=== PATIENT | male | born 1935 | race Caucasian/White ===

== ENCOUNTER → 2023-12-05 08:36 | Outpatient (REF) | payer MEDICARE, OTHER, SELFPAY ==
[2023-12-05 13:57] LABS: Urine Albumin Negative (Neg - Trace); Urine Bilirubin Negative (Negative); Urine Character Clear (Clear); Urine Color Yellow; Urine Glucose Negative (Negative); Urine Ketone Negative (Negative); Urine Leukocyte Negative (Negative); Urine Nitrite Negative (Negative); Urine Occult Blood Negative (Negative); Urine Specific Gravity 1.015 (<1.030); Urine Urobilinogen Negative (Neg - 1+); Urine pH 6.5 (5.0-9.0)
== END ==
LOC: OLABN 08:36
PROVIDERS: ATTENDING PHYSICIAN Student in an Organized Health Care Education/Training Program
DX: R35.0 Frequency of micturition (principal)
CPT/HCPCS: 81003; 87086

== ENCOUNTER → 2023-12-12 08:18 | Outpatient (REF) | payer MEDICARE, OTHER, SELFPAY ==
[2023-12-12 11:05] LABS: ALT (SGPT) 22 U/L (0-50); AST (SGOT) 38 U/L (17-59); Albumin 2.9 g/dl (3.5-5.0); Alkaline Phosphatase 50 U/L (38-126); Blood Urea Nitrogen 27 mg/dl (9-20); Calcium 8.3 mg/dl (8.4-10.2); Carbon Dioxide 29 mmol/L (22-30); Chloride 100 mmol/L (98-107); Glucose 85 mg/dl (70-99); Hematocrit 39.5 % (39.0-52.0); Hemoglobin 13.4 g/dL (13.0-18.0); Mean Corp Hgb Conc. 33.9 g/dL (33.0-37.0); Mean Corpuscular Volume 85.5 fL (80.0-94.0); Mean Platelet Volume 10.1 fL (7.4-10.4); Platelet Count 123 10^3/uL (130-400); Potassium 4.2 mmol/L (3.5-5.1); Red Blood Cell Count 4.62 10^6/uL (4.70-6.10); Red Cell Dist. Width 13.9 % (11.5-14.5); Sodium 135 mmol/L (135-145); Total Bilirubin 0.7 mg/dl (0.2-1.3); Total Protein 5.4 g/dl (6.3-8.2); White Blood Cell Count 4.9 10^3/uL (4.8-10.8); eGFR > 60.00
== END ==
LOC: OLABN 08:18
PROVIDERS: ATTENDING PHYSICIAN Student in an Organized Health Care Education/Training Program
DX: M62.81 Muscle weakness (generalized) (principal)
CPT/HCPCS: 36415; 80053; 85027

== ENCOUNTER 2025-02-06 12:57 | Inpatient (IN) | payer MEDICARE, OTHER, SELFPAY ==
[2025-02-06] VITALS (10 sets, daily range): BP systolic 123–153; BP diastolic 63–95; BMI 27.0
--- NOTE | 2025-02-06 09:27 | ED.GENMED ---
History of Present Illness
General
Chief Complaint: Rectal Bleeding
Source: patient
Exam Limitations: none
Time Seen by Provider: 02/06/25 09:27
Nursing documentation reviewed up to this point in time: agreed with
History of Present Illness
History of Present Illness:
Patient is an 89-year-old male presents from the long term for evaluation of rectal bleeding and clots.
As per nurse at [facility], pt had a moderate amount of blood in pull up that was dark red wtih clots. PT does walk to the BR by himself. He is on ASA no other blood thinners.
As per pt had colon cancer over 10 yrs ago. He had chemotherapy . In addition he has hx of multiple myeloma.
is Soraya : [phone]
Patient does have a history of dementia he arrives awake alert pleasantly confused and not able to give history.
Review of Systems
Review of Systems
Allergies reviewed?: Yes
All Other Systems: ROS reviewed and negative except as documented in HPI and ROS
Constitutional: Reports no symptoms; Denies fever, fatigue or chills
Respiratory: Reports no symptoms
Cardiac: Reports no symptoms
ABD/GI: Reports other (rectal bleeding/clots as per AL staff )
Phy Exam
General Physical Exam
General Presentation: no apparent distress
General age: appears stated age
General Skin: warm and dry
General Habitus: elderly
General Mental: confused
Cardiovascular Exam
Cardiovascular Exam: regular rate/rhythm, no murmur and normal peripheral pulses
Pulmonary Exam
Pulmonary Exam: lungs clear and no respiratory distress
Gastrointestinal Exam
Gastrointestinal Exam: non tender, soft and other (+ blood maroon colored on rectal exam no active bleeding )
Neurological Exam
Neurological Exam: alert and oriented x3
Musculoskeletal Exam
Musculoskeletal Exam: full ROM
Skin Exam
Skin Exam: normal color and warm/dry
Psychiatric Exam
Psychiatric Exam: normal mood/affect
Course
Orders/Labs/Results
Orders:
Orders
02/06/25 Breakfast
NPO
Allow oral meds: Yes
Allow clear liquids: Sips of Clears
NPO with Ice Chips: Yes
02/06/25 09:28
Electrocardiogram (*1) Urgent
Reason for Study: Other
Other Reason for Exam: admisison
Cardiac Monitoring- Treatment ONCE
EKG- Treatment ONCE
IV Insert/Care/Rem.- Treatment PRN
02/06/25 09:30
Basic Metabolic Panel Urgent
02/06/25 09:31
Type+Screen Urgent
Complete Blood Count/With Diff Urgent
02/06/25 11:33
Ondansetron Injectable [Zofran] 4 mg .ROUTE .STK-MED ONE
Ondansetron Orally Disint [Zofran Odt (Orally Disintegrating)] 4 mg .ROUTE .STK-MED ONE
02/06/25 11:54
Tranexamic Acid 1000 mg/100 ml [Tranexamic Acid] 1,000 mg in 100 ml IV ONCE
02/06/25 12:36
Admit/Transfer Patient As Directed
Co-Sign Provider:
Level of Care: Inpatient admission
Assign to:: IMU- Intermediate Care
Physician / Group: Htay
Diagnosis: GI Bleed
Reason for Hospitalization: IVFs, GI Bleed
Expected length of stay greater than two midnights?: Yes
ELOS- Estimated Length of Stay in days: 3
I certify the patient meets the requirements for IP care: Yes
02/06/25 12:37
PRN Pain Medication Management As Directed
May give lesser potent ordered pain med per pt: Yes
preference::
Protocol:: Medication orders for pain may be administered in a
manner that supports deferring to patient preference
when the pt is:
- Requesting an ordered lesser potent pain medication.
Least to most potent pain medications are defined
as: acetaminophen < NSAID < tramadol < opioids
(morphine, oxycodone, hydromorphone).
- Requesting a lesser dose of the same medication IF
ORDERED.
- Requesting a less intrusive route of administration
if both routes are prescribed by the provider (PO <
IV).
02/06/25 12:38
Code Status As Directed
Resuscitation Status: Do not resuscitate
Reached after discussion with pt or family/Healthcare POA: Yes
DNR Bracelet Application ONCE
02/06/25 12:46
PRN Pain Medication Management As Directed
May give lesser potent ordered pain med per pt: Yes
preference::
Protocol:: Medication orders for pain may be administered in a
manner that supports deferring to patient preference
when the pt is:
- Requesting an ordered lesser potent pain medication.
Least to most potent pain medications are defined
as: acetaminophen < NSAID < tramadol < opioids
(morphine, oxycodone, hydromorphone).
- Requesting a lesser dose of the same medication IF
ORDERED.
- Requesting a less intrusive route of administration
if both routes are prescribed by the provider (PO <
IV).
02/06/25 12:51
CT Angio Abd/Pelvis w/wo IV [CT Abd/pelvis Angio W/wo Iv] Stat
Comment:
Reason For Exam: GI bleed
02/06/25 12:58
H&H Q6H
02/06/25 14:12
0.9% Sodium Chloride 1000 ml [Nss] 1,000 ml IV 80 mls/hr
Acetaminophen [Tylenol] 650 mg PO Q4HPRN PRN
02/06/25 14:12
GASTROINTESTINAL CONSULT Routine
Consulting Provider: Roya Waterman
Was physician already notified: Yes
Activity As Directed
Activity Level: Out of Bed- Chair
Pneumatic Compression Sleeves As Directed
Type: Knee high
Vital Signs As Directed
Frequency: Per unit guidelines
DX Deep Vein Thrombosis Video Routine
02/06/25 18:00
Tamsulosin [Flomax] 0.4 mg PO QPM
02/06/25 20:01
H&H Q6H
02/07/25 03:40
Basic Metabolic Panel IN AM
Complete Blood Count/No Diff IN AM
Abnormal Lab Results
02/06/25 02/06/25
09:30 09:31
Abs Immat Gran (auto) 0.1 H 10^3/uL
(0-0.05)
Absolute Monos (auto) 0.9 H 10^3/uL
(0.1-0.6)
Immature Gran % 0.8 H %
(0-0.5)
Monocytes % 14.3 H %
(1.7-9.3)
BUN 26 H mg/dl
(9-20)
02/06/25 09:31
02/06/25 09:30
Vital Signs
Initial and Last Documented VS:
Initial Vital Signs
Temp Pulse Resp BP Pulse Ox
97.8 F 65 18 151/70 96
02/06/25 09:27 02/06/25 09:27 02/06/25 09:27 02/06/25 09:27 02/06/25 09:27
Last Documented Vital Signs
Temp Pulse Resp BP Pulse Ox
98.1 F 97 24 136/96 99
02/07/25 20:13 02/07/25 19:06 02/07/25 19:06 02/07/25 19:06 02/07/25 20:12
MDM/Problems Addressed
Differential Diagnosis Includes:
not limited to: GI bleed anemia
MDM/Problems Addressed:
Patient is an 89-year-old male sent for rectal bleeding from the long term. He has a history dementia and is unable to give history. He has a history of colon cancer greater than 10 years ago. Abdomen soft and nontender patient does not seem
to be in any pain or distress. Unable to get clear history from patient himself because of dementia. Family at bedside.
Stable HGB of 14.2 here however + did have large maroon blood w/ clots per rectum here in the ED. will admit
Chronic conditions affecting care:
Dementia, history of colon cancer years ago
*Critical Care Note
Total Time (30-74mins, 75-104mins- exclusive of procedures): Not Applicable
ED Attending Note
-
Portions of this chart may have been created with voice recognition software.� Occasional wrong word or��sound alike� substitutions may have occurred due to the inherent limitations of voice recognition software.
Discharge Plan
Departure
Patient Disposition: Admit
Date of Disposition: 02/06/25
Time of Disposition: 11:59
Admit to: Telemetry
Admit to doctor: hospitalist
Presentation/result/management discussed w/ accepting MD/DO: Hospitalist
Patient with high blood pressure during this ER visit?: Yes
Condition: Fair
Covid-19: Not Applicable
Discharge Problem:
Acute GI bleeding
Interventions
Interventions:
*Risk Screen - Suicide Last Done: 02/06/25 09:21
*General Assessment Last Done: 02/06/25 09:21
*Neglect/Abuse Screening Last Done: 02/06/25 09:21
*ED- Fall Risk Assessment Last Done: 02/06/25 11:50
*ED COVID-19 Vaccine History Last Done: 02/06/25 11:50
*Nursing Disposition Last Done: 02/06/25 14:15
JQ-Hzzwdz-Psxnpkhjwh Assessment Last Done: 02/06/25 11:50
ED- Cardiac Assessment Last Done: 02/06/25 11:50
ED- Pulmonary Assessment Last Done: 02/06/25 11:50
Discharge Date and Time
Discharge Date/Time: 02/06/25 14:15
[2025-02-06 09:39] LABS: % Basophils 0.6 % (0-2); % Eosinophils 2.2 % (0-6); % Immature Granulocytes 0.8 % (0-0.5); % Lymphocytes 24.8 % (20.5-51.1); % Monocytes 14.3 % (1.7-9.3); % Neutrophils 57.3 % (42.2-75.2); Absolute Eosinophils 0.1 10^3/uL (0-0.7); Absolute Immature Granulocytes 0.1 10^3/uL (0-0.05); Absolute Lymphocytes 1.6 10^3/uL (1.2-3.4); Absolute Monocytes 0.9 10^3/uL (0.1-0.6); Absolute Neutrophils 3.6 10^3/uL (1.4-6.5); Hematocrit 48.1 % (39.0-52.0); Hemoglobin 16.1 g/dL (13.0-18.0); Mean Corp Hgb Conc. 33.5 g/dL (33.0-37.0); Mean Corpuscular Hgb 29.9 pg (27.0-31.0); Mean Corpuscular Volume 89.4 fL (80.0-94.0); Mean Platelet Volume 10.3 fL (7.4-10.4); Nucleated Red Blood Cells % 0 % (-); Platelet Count 150 10^3/uL (130-400); Red Blood Cell Count 5.38 10^6/uL (4.70-6.10); Red Cell Dist. Width 13.7 % (11.5-14.5); White Blood Cell Count 6.3 10^3/uL (4.8-10.8)
[2025-02-06 10:04] LABS: Blood Urea Nitrogen 26 mg/dl (9-20); Calcium 9.1 mg/dl (8.4-10.2); Carbon Dioxide 24 mmol/L (22-30); Chloride 107 mmol/L (98-107); Glucose 99 mg/dl (70-99); Sodium 140 mmol/L (135-145); eGFR > 60.00
--- NOTE | 2025-02-06 12:08 | HPS.HSE ---
Family Physician
-
Family Physician: Osmany Boyce,
Chief Complaint
-
Rectal Bleeding
History of Present Illness
Patient is an 89 y/o male past medical history of dementia, sick sinus syndrome s/p pacemaker and multiple myeloma in remission who presents with rectal bleeding. Additional history is obtained from patient's at the bedside. She notes patient
had a bowel movement yesterday that was slightly hard but noted to be brown in color, and she denies any straining during the bowel movement. Today she received a call from the skilled nursing where patient is a long term acute care registered nurse resident that patient had a
bowel movement described as blood with clots. Patient was brought to the emergency department where he had another episode of blood and clots. reports known diverticulosis and prior cancerous colon polyps removed but no history of colon
cancer.
Medical History
Past Medical History
Past Medical History: Reports Other
Additional Past Medical History:
Sick Sinus Syndrome s/p Pacemaker
Dementia
Multiple Myeloma, in remisison
Past Surgical History: Reports None
Additional Past Surgical History:
Hernia Repair
Permanent Pacemaker
Social History
Tobacco: Non-smoker
Living: [facility]
Family History
Family History: Not pertinent
Allergies / Home Medications
Allergies reflects when Allergies were last updated in [facility].
Home Medications with original date entered in [facility]
Allergy/Medication List:
Allergies
Allergy/AdvReac Type Severity Reaction Status Date / Time
No Known Allergies Allergy Verified 12/09/22 12:00
Home Medications
acetaminophen 325 mg tablet (Tylenol) 650 mg PO Q4HPRN PRN MILD PAIN 02/06/25
aspirin 81 mg tablet,delayed release 81 mg PO DAILY 02/06/25
bisacodyl 10 mg rectal suppository (Dulcolax (bisacodyl)) 10 mg [place] [id number] PRN IF NO BM AFTR MOM 02/06/25
cholecalciferol (vitamin D3) 25 mcg (1,000 unit) tablet (Vitamin D3) 25 mcg PO DAILY 02/06/25
magnesium hydroxide 400 mg/5 mL oral suspension (Milk of Magnesia) 2,400 mg PO HSPRN PRN CONSTIPATION 02/06/25
tamsulosin 0.4 mg capsule (Flomax) 0.4 mg PO QPM 02/06/25
therapeutic multivitamin 1 tab PO DAILY 02/06/25
Review of Systems
-
Unable to obtain full review of systems at this time due to: Dementia
Respiratory: Denies Trouble Breathing
Cardiac: Denies Chest Pain
Abdomen/GI: Reports See HPI
Neurological: Denies Dizzy
Physical Exam
Vital Signs
Vital Signs
Temp Pulse Resp BP Pulse Ox
97.8 F 62 16 136/68 98
02/06/25 09:27 02/06/25 10:00 02/06/25 11:52 02/06/25 10:00 02/06/25 11:50
Physical Exam
General: Comfortable and Conversant
HEENT: Anicteric and Moist mucous membranes
Respiratory: Clear and Non Labored Respirations
Cardiac: S1/S2 and Regular Rhythm
GI: Soft and Non Tender
Rectal: Other (Bright Red Blood in diaper)
Musculoskeletal: No Clubbing, No Cyanosis and No Edema
Skin: Warm and Dry
Neuro: Awake, Alert and Nonfocal/grossly intact
Psych: Calm
Laboratory Results
-
02/06/25 09:31
02/06/25 09:30
Laboratory Results
Total Bilirubin Cancelled 02/06/25 09:30
AST Cancelled 02/06/25 09:30
ALT Cancelled 02/06/25 09:30
Alkaline Phosphatase Cancelled 02/06/25 09:30
Data Reviewed
-
Lab Data: Labs Reviewed by me
Old Records: Reviewed
Impression/Plan
-
GI Bleed, likely lower in nature possibly diverticular
-Consult GI
-Check CT Angio
-Continue NPO/IVFs
-Trend serial Hgb
-Blood consent obtained from at bedside and scanned into chart
Dementia
-Monitor for mood/behavior changes during hospitalization
BPH
-Continue Flomax
Hx Sick Sinus Syndrome s/p Permanent Pacemaker
Hx Multiple Myeloma s/p Chemotherapy - In Remission
DVT proph: SCDs
Code Status: DNR per POLST and confirmed with at bedside
[2025-02-06] MEDS: TRANEXAMIC ACID 100 IV (12:17)
--- NOTE | 2025-02-06 12:28 | CON.GI ---
Addendum entered and electronically signed by Roya Lopez Do, MD 02/06/25 16:16:
I saw and examined the patient.
The CREDIT REPRESENTATIVE's note was reviewed and I agree with the note.
Comment: Dakotah is an 89yo M with h/o dementia in SNF, pacer and multiple myeloma who presents with hematochezia after episode of constipation at SNF. Denies abd pain, nausea/vomiting or LH. Vitals HR is paced, BP 140/90s. NTTP, NABs. Labs
reviewed Hbg stable. CTA neg for extravasation, diverticulosis and suggestive of proctitis. mild prostate enlargement
Impression
- Hematochezia
Painless could be diverticular vs hemorrhoidal
- Dementia
- Pacer
- Multiple myeloma
- HTN
- SSS pacer
- BP
Recommendations
- Results of CTA d/w family and pt
- CLD now
- Monitor stool output
- Serial H/H
- C/w protonix daily basis
- If H/H stable consider bowel regimen and anusol supp empirically for hemorrhoids
- His last Cscope 2019 and family does not think he could tolerate prep again
Will follow with you. RN updated bedside.
Original Note:
Consultation
-
Date/Time Consultation Requested: 02/06/25 1215
Date/Time Consultation Performed: 02/06/25 1230
Requesting Provider: POPPY Vallejo
Performing Provider: POPPY Bell, Roya Waterman MD
Reason for Consultation: rectal bleeding
Medical History
Chief Complaint / HPI
History of Present Illness:
Pt is a 89yo presents with hx multiple myeloma in remission, pacer for SSS, dementia, HTN, hypothyroidism, prior rectal bleeding several years ago with colonoscopy 2019 with difficulty with diverticulosis, hemorrhoids, HP polyp, glandularity in
colon with neg bx. At that time blood with small volume with red blood on paper. Pt now presents with onset of large volume of red blood with dark clots. Pt on daily ASA no other NSAIDs. Pt unable to provide much history but able to
assist. He resides at [facility] but visits daily. She admit to daily stools some hard at time with chronic constipation. Had large harder stool yesterday after prunes. Bleeding then started around 9 am 02/06. Per family no chronic GI
issue with dysphagia, odynophagia, GERD, nausea, vomiting, abdominal pain, diarrhea, or black stools. No hx EGD in past. On admission hbg was 16.1 with BUN 26.
Past Medical History
Past Medical History: Arrhythmias (sss with pacer), HTN, Hypothyroidism, Psychiatric (dementia ) and Other (multiple myeloma, BPH )
Past Surgical History: Cardiac (pacer )
Social History
Tobacco: Former Smoker (years ago )
Alcohol: None
Drug: None
Personal:
Living: Assisted
Employment: Retired
Family History
Family History: Other (no family hx GI issues )
Allergies / Home Medications
Allergy/AdvReac Type Severity Reaction Status Date / Time
No Known Allergies Allergy Verified 12/09/22 12:00
�Medication �Instructions �Recorded
acetaminophen 325 mg tablet 650 mg PO Q4HPRN PRN MILD PAIN 02/06/25
(Tylenol)
aspirin 81 mg tablet,delayed 81 mg PO DAILY 02/06/25
release
bisacodyl 10 mg rectal suppository 10 mg [place] [id number] PRN IF NO BM AFTR 02/06/25
(Dulcolax (bisacodyl)) MOM
cholecalciferol (vitamin D3) 25 25 mcg PO DAILY 02/06/25
mcg (1,000 unit) tablet (Vitamin
D3)
magnesium hydroxide 400 mg/5 mL 2,400 mg PO HSPRN PRN CONSTIPATION 02/06/25
oral suspension (Milk of Magnesia)
tamsulosin 0.4 mg capsule (Flomax) 0.4 mg PO QPM 02/06/25
therapeutic multivitamin 1 tab PO DAILY 02/06/25
Review of Systems
-
Unable to obtain full review of systems at this time due to: Dementia
History Source: Patient and Family
Constitutional: Reports No Symptoms
EENT: Reports No Symptoms
Respiratory: Reports No Symptoms
Abdomen/GI: Reports Bloody Stools (red with dark clots )
: Reports No Symptoms
Musculoskeletal: Reports No Symptoms
Skin: Reports No Symptoms
Neurological: Reports Weakness
Endocrine: Reports No Symptoms
Hematologic/Lymphatic: Reports Bleeding
Vital Signs
Temp Pulse Resp BP Pulse Ox
97.8 F 58 14 153/84 98
02/06/25 09:27 02/06/25 12:15 02/06/25 12:15 02/06/25 12:00 02/06/25 11:50
Physical Exam
Exam
General: Well Developed, Well Nourished and No Apparent Distress
HEENT: Normocephalic and Anicteric
Respiratory: Clear
Cardiac: Regular Rhythm
GI: Soft, Non Tender and Non Distended
Rectal: Other (large volume of red blood with dark clots in diaper )
Musculoskeletal: No Clubbing and No Cyanosis
Skin: Warm and Dry
Neuro: Awake, Alert and Other (minimal verbal - family provides most history )
Psych: Calm
Results
WBC 6.3 10^3/uL (4.8-10.8) 02/06/25 09:31
Hgb 16.1 g/dL (13.0-18.0) 02/06/25 09:31
Hct 48.1 % (39.0-52.0) 02/06/25 09:31
MCV 89.4 fL (80.0-94.0) 02/06/25 09:31
Plt Count 150 10^3/uL (130-400) 02/06/25 09:31
Absolute Neuts (auto) 3.6 10^3/uL (1.4-6.5) 02/06/25 09:31
Sodium 140 mmol/L (135-145) 02/06/25 09:30
Potassium mmol/L (3.5-5.1) 02/06/25 09:30
Chloride 107 mmol/L (98-107) 02/06/25 09:30
Carbon Dioxide 24 mmol/L (22-30) 02/06/25 09:30
BUN 26 mg/dl (9-20) H 02/06/25 09:30
Creatinine 0.9 mg/dL (0.7-1.3) 02/06/25 09:30
Calcium 9.1 mg/dl (8.4-10.2) 02/06/25 09:30
Total Bilirubin Cancelled 02/06/25 09:30
AST Cancelled 02/06/25 09:30
ALT Cancelled 02/06/25 09:30
Alkaline Phosphatase Cancelled 02/06/25 09:30
Diagnostic Image Results:
02/06/25 CTA pending
Prior GI Procedures:
EGD: none
03/2019 colonoscopy [facility] - difficulty with diverticulosis, to TI adequate prep - Hemorrhoids found on perianal exam.
- Non-bleeding external and internal hemorrhoids and
likely the cause of the bleeding.
- One 4 mm polyp in the sigmoid colon, removed with a
jumbo cold forceps. Resected and retrieved.
- Diverticulosis in the entire examined colon.
- Granularity in the sigmoid colon, in the ascending
colon and in the cecum. Biopsied.
- The examined portion of the ileum was normal.
bx HP polyp, neg colitis
Assessment / Plan
-
Pt is a 89yo presents with hx multiple myeloma in remission, pacer for SSS, dementia, HTN, hypothyroidism, prior rectal bleeding several years ago with colonoscopy 2019 with difficulty with diverticulosis, hemorrhoids, HP polyp, glandularity in
colon with neg bx. At that time blood with small volume with red blood on paper. Pt now presents with onset of large volume of red blood with dark clots. Pt on daily ASA no other NSAIDs. Pt unable to provide much history but able to
assist. He resides at [facility] but visits daily. She admit to daily stools some hard at time with chronic constipation. Had large harder stool yesterday after prunes. Bleeding then started around 9 am 02/06. . No hx EGD in past. On
admission hbg was 16.1 with BUN 26.
-sudden onset of large volume rectal bleeding
-constipation
-hx HP polyps, hemorrhoids, diverticulosis per prior colonoscopy
other med problems:
-dementia
-hx multiple myeloma in remission
-pacer for SSS
-HTN
-hypothyroidism
-BPH
PLAN:
etioloyg of bleeding with large volume of painless bleeding related to diverticular bleed vs other
repeat rectal on exam with large volume red blood with dark clots in diaper -- now 3rd episode since 9 AM
plan for CTA now if + consider angio
hbg 16.1 on admission with drop to 14.7 after admission
NPO
trend stool record hbg transfuse as needed
reviewed with Leyla Cutler PA-C
updated family
-
-
Thank you for consultation and allowing me to participate in the patient's care. Please call the electronics engineer GI physician during the after hours with any questions or concerns.
--- NOTE | 2025-02-06 12:40 | W.PN.UPDATE ---
Addendum entered and electronically signed by Milad Guy MD 02/06/25 13:14:
CORRECTION:
89M NH Res, HX Dementia, on ASA, HX myeloma Remote <del>HX</del> <del>HX</del> <del>Colorectal</del> <del>CA</del>, HX colon polys removal
Addendum entered and electronically signed by Milad Guy MD 02/06/25 12:46:
Seen by GI CAN MARKER
Diaper is soaked with blood
HX constipation
- CTA in place of AXR
- Level of care to IMU
Original Note:
Update Note
Progress Note Update
I could not get any information from the patient has dementia:
Information gathered by chart review and speaking with the ER staff. and is Soraya : [phone]
This note serves as an addendum to the H&P by sole layer hand ZACH Ksenia SABAAUDIE
HPI
89M NH Res, HX Dementia, on ASA, HX myeloma Remote HX HX Colorectal CA treated with chemo seen at ER for for evaluation of rectal bleeding and clots.
- NH staff , passage of moderate amount of blood in pull up that was dark red wtih clots.
- currently on ASA
- he does walk to the BR by himself
At ER: he arrives awake alert pleasantly confused and not able to give history.
Reviewed VS:
VS
02/06/25
09:27 02/06/25
10:00
Temp 97.8 F
Pulse 65
Resp Rate 18
Blood pressure 151/70 136/68
SaO2 96
Oxygen Mode of Delivery Room air
PE
Gen: pleasantly confused
HEENT: no pallor
Neck: supple
Lungs: CTA
Cor: RRR S1 S2
Abdomen: soft and benign
MACHINE HEEL SPRAYER: alert , non focal exam
MS: no edema
Psych: interactive but limited exam due to dementia
Labs
02/06/25 02/06/25
09:30 09:31
Hgb 16.1
BUN 26 H
Creatinine 0.9
eGFR > 60.00
EKG
Atrial-paced rhythm with prolonged AV conduction
LEFT AXIS DEVIATION
MINIMAL VOLTAGE CRITERIA FOR LVH, MAY BE NORMAL VARIANT ( R in aVL )
ABNORMAL ECG
WHEN COMPARED WITH ECG OF 09-DEC-2022 12:09,
NO SIGNIFICANT CHANGE WAS FOUND
Confirmed by MD ANGEL, KRYSTA Nj ([id number]) on 02/06/2025 10:09:42 AM
05/28/23 TTE
Normal biventricular size and systolic function without regional wall motion abnormality.
Estimated LVEF 60-65%.
Aortic sclerosis without stenosis.
Mild aortic regurgitation.
Ectatic proximal ascending aorta: 3.8 cm.
NO PRIOR hospitalist admission:
03/31/19 Colonoscope
- Hemorrhoids found on perianal exam.
- Non-bleeding external and internal hemorrhoids and likely the cause of the bleeding.
- One 4 mm polyp in the sigmoid colon, removed with a jumbo cold forceps. Resected and retrieved.
- Diverticulosis in the entire examined colon.
- Granularity in the sigmoid colon, in the ascending colon and in the cecum. Biopsied.
- The examined portion of the ileum was normal.
ASSESSMENT & PLAN
Acute rectal bleed with 2 episodes of BRP and passage of clot : received IV tranexemic acid at ER
Hemodynamically stable
Hgb 16
Remote HX Colon polys by denied CA by family
DDX: Hemorrhoids, Diverticulosis, fecal impaction
- AXR to eval fro fecal burden
- Hold ASA for now
- NPO wit sips
- Gentle IVF
- Trend H & H
- Blood consented
- GI consulted
HX Multiple myeloma in remission
HX s/p chemo
BPH
- c/w Flomax
Dementia
Res of memory care unit at OR
Use walker
- supportive care
DVT Px: SCD
DNR per advanced directives confirmed by
IP TLM
[2025-02-06 13:18] LABS: Hematocrit 43.8 % (39.0-52.0); Hemoglobin 14.7 g/dL (13.0-18.0)
[2025-02-06] MEDS: NSS 1000 IV (14:33)
--- NOTE | 2025-02-06 15:52 | PTCARENOTE ---
Received patient on admission from ED via stretcher. Patient transferred to bed x3 assist and t/f sheet. Patient incontinent of small amount maroon liquid stool. Dr Waterman from GI on unit to see patient and made aware; increased diet to clear liquid.
--- NOTE | 2025-02-06 15:54 | PTCARENOTE ---
Received patient on admission from ED via stretcher. Patient transferred to bed x3 assist and t/f sheet. Patient incontinent of small amount maroon liquid stool. Dr Waterman from GI on unit to see patient and made aware; increased diet to clear liquid.
Ox1, pleasant and cooperative; a-paced on monitor. Denies abdominal pain/tenderness. See worklist for full assessment and vital signs.
--- NOTE | 2025-02-06 16:04 | PTCARENOTE ---
Received patient on admission from ED via stretcher. Patient transferred to bed x3 assist and t/f sheet. Patient incontinent of small amount maroon liquid stool. Dr Waterman from GI on unit to see patient and made aware; increased diet to clear liquid.
Ox1; pleasant and cooperative; a-paced on the monitor. and daughter at bedside. See worklist for full assessment and vital signs.
[2025-02-06] MEDS: FLOMAX 0.4 MG PO (18:00)
[2025-02-06 20:08] LABS: Hemoglobin 14.2 g/dL (13.0-18.0)
--- NOTE | 2025-02-06 22:41 | PTCARENOTE ---
Caring for pt overnight. Not oriented and unable to teach/reorient. NSR on monitor, occasional pacer spikes. VSS. Q2T. Bed alarm. NO bloody Bm's. H&H at 1930 14.2. NO other issues at this time. Will monitor
[2025-02-07] VITALS (12 sets, daily range): BP systolic 104–152; BP diastolic 41–96
[2025-02-07] MEDS: NSS 1000 IV ×2 (01:54→15:29)
[2025-02-07 03:50] LABS: Hematocrit 43.3 % (39.0-52.0); Hemoglobin 14.2 g/dL (13.0-18.0); Mean Corp Hgb Conc. 32.8 g/dL (33.0-37.0); Mean Corpuscular Hgb 28.9 pg (27.0-31.0); Mean Platelet Volume 10.1 fL (7.4-10.4); Platelet Count 151 10^3/uL (130-400); Red Blood Cell Count 4.92 10^6/uL (4.70-6.10); Red Cell Dist. Width 13.5 % (11.5-14.5); White Blood Cell Count 8.3 10^3/uL (4.8-10.8)
[2025-02-07 04:17] LABS: Blood Urea Nitrogen 23 mg/dl (9-20); Calcium 8.5 mg/dl (8.4-10.2); Carbon Dioxide 24 mmol/L (22-30); Chloride 106 mmol/L (98-107); Estimated Creatinine Clearance 61 ml/min; Glucose 103 mg/dl (70-99); Potassium 4.1 mmol/L (3.5-5.1); Sodium 139 mmol/L (135-145); eGFR > 60.00
--- NOTE | 2025-02-07 07:13 | W.PN.HOSP.TC ---
Addendum entered and electronically signed by Lee Granda MD 02/07/25 21:07:
Attending Addendum-
I saw and evaluated the patient. I reviewed the resident�s note and agree with findings and plan as documented in the resident�s note. Sub: Patient is a poor historian due to dementia but very pleasant. Seen with present. No further BRBPR.
Stools are burgundy. Patient with no complaints. Full 12 point ROS reviewed and negative except as documented Exam: Vitals reviewed in chart GEN-NAD heart RRR no M/R/G lungs clear abd soft NT ND pos BS LE no edema Neuro AAO x 1
Plan:
# Acute GI Bleed, likely lower
- diverticular vs hemorrhoids
- transfer to [facility] from IMU
- GI- no indication for invasive procedures due to age and acute bleeding has subsided
- CT Angio 02/06-
1. No extravasation of contrast into the bowel to suggest active bleeding at the time of imaging.
2. Hyper enhancement of the rectal mucosa on arterial phase images, suggestive of proctitis. No intraluminal contrast is seen on delayed phase images to suggest active rectal bleeding.
3. Moderate colonic diverticulosis without evidence of diverticulitis.
-advance diet
-Trend serial Hgb- stable
-Blood consent obtained from at bedside and scanned into chart
# Stage 1 b/l sacral and coccyx ulcer
- POA
- wound care
# Dementia
-Monitor for mood/behavior changes during hospitalization
# BPH
-Continue Flomax
#Hx Sick Sinus Syndrome s/p Permanent Pacemaker
#Hx Multiple Myeloma s/p Chemotherapy - In Remission
DVT proph: SCDs
Dispo DC back to [facility] in am
Code Status: DNR d/w with at bedside
ACP
Patient unable to consent to discuss, was with , time spent explanation of advance directives, changes in health status, patient�s health care wishes if the patient becomes unable to make health decisions, goals of care, code status, and
prognosis 'thats what his wishes would be'- 16 minutes
Time spent coordinating care, review of plan of care with resident, personally reviewed previous records in EMR, med rec, labs, radiology, d/w nursing, family total time documented is exclusive of any additional time listed that was spent in advance
care planning discussion -�52 minutes
Original Note:
Today's Communication/Plan
-
Patient remains hemodynamically stable
C/t hold aspirin
Will add daily stool softener regimen for constipation and Anusol for hemorrhoid
PT/OT eval
Likely D/c tomorrow
Assessment / Plan
Assessment / Plan
89 Year old male presenting with an episode of painless hematochezia after straining
Soraya : [phone]
ACUTE MANAGING
CT Abd/pelvis Angio W/wo Iv:
1. No extravasation of contrast into the bowel to suggest active bleeding at the time of imaging.
2. Hyper enhancement of the rectal mucosa on arterial phase images, suggestive of proctitis. No intraluminal contrast is seen on delayed phase images to suggest active rectal bleeding.
3. Moderate colonic diverticulosis without evidence of diverticulitis.
4. Mild prostatic enlargement.
#Painless Hematochezia, secondary to diverticular bleed vs. hemorrhoidal bleed
- previous colonoscopy 2019, polyp removal, no h/o colon cancer
- h/o diverticulosis w/ CT confirmation -- no evidence for diverticulitis
- CTA shows no signs of active bleed. There is radiographic evidence of proctitis
- hgb on admission 14.2, patient hemodynamically stable
- CLD, will advance to regular
- holding aspirin
#Acute BL Conjunctivitis, likely Bacterial
- new on admission, given patient's dementia and recent loose bowel movements, most likely bacterial in nature
- Started Polymyxin B- Trimethoprim eye drops qid x7d
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
CHRONIC STABLE
#Chronic Constipation - c/w Dulcolax, MoM prn
#H/o Multiple Myeloma, in remission
#Dementia - holding Theragen
# Sick Sinus Syndrome, s/p pacemaker -
#BPH - c/w flomax
Diet: regular
DVT PPx: None
Code Status: Full Code
Anticipated Discharge: Within 24 hours
Subjective/Interval History
-
Date of Service: February 07, 2025
Interview somewhat limited due to dementia, however patient does not endorse any pain, bleeding, n/v/d or abd pain. He had burgundy colored stool overnight.
Objective Data
-
Labs:
Laboratory Results
02/06/25 02/07/25 02/07/25
20:01 01:30 03:40
WBC 8.3
Hgb 14.2 Cancelled 14.2
Hct 42.0 Cancelled 43.3
Plt Count 151
Sodium 139
Potassium 4.1
Chloride 106
Carbon Dioxide 24
BUN 23 H
Creatinine 0.8
Glucose 103 H
Calcium 8.5
02/07/25
07:30
WBC
Hgb Pending
Hct Pending
Plt Count
Sodium
Potassium
Chloride
Carbon Dioxide
BUN
Creatinine
Glucose
Calcium
Vital Signs:
Vital Signs
Temp Pulse Resp BP Pulse Ox
98.2 F 65 22 128/72 95
02/07/25 07:13 02/07/25 06:00 02/07/25 06:00 02/07/25 06:00 02/06/25 20:58
I&O
02/06/25 02/07/25 02/08/25
06:59 06:59 06:59
Intake Total 600 / 600
Output Total 925 / 925
Balance -325 / -325
Review of Systems
-
Unable to obtain full review of systems at this time due to: Dementia
History Source: Patient
Constitutional: Reports No Symptoms
Respiratory: Reports No Symptoms
Cardiac: Reports No Symptoms
Abdomen/GI: Reports No Symptoms
Musculoskeletal: Reports No Symptoms
Hematologic / Lymphatic: Denies Bleeding or Bruising
Physical Exam
-
General: Well Developed, Well Nourished, No Apparent Distress and Comfortable
HEENT: Normocephalic, Atraumatic, Moist Mucous Membranes, Anicteric, [place] Conjunctivae, Nose Appears Normal and Ears Appear Normal
Respiratory: Clear to Auscultation; Negative Wheezes, Rales or Rhonchi
Cardiac: Regular Rhythm and S1/S2; Negative Murmur or Rub
GI: Soft, Nontender, Nondistended and Normal Bowel Sounds
Musculoskeletal: No Clubbing, No Cyanosis and No Edema
Skin: Warm, Dry and IV Access / Catheter Site
Neuro: Awake and Alert; Negative Oriented
[2025-02-07] MEDS: PROTONIX 40 MG PO (09:26)
--- NOTE | 2025-02-07 11:43 | PTCARENOTE ---
Assumed care of patient at beginning of this shift. Patient scheduled for H&H at 07:30 but had one drawn at 03:40 with results 14.2/43.3; Dr Granda and Dr Hernandez made aware via TT, H&H cancelled. Patient incontinent of small brown/maroon liquid
bm; Dr Hernandez made aware when on unit to see patient. See worklist for full assessment and vital signs.
[2025-02-07] MEDS: POLYTRIM OPHTHALMIC SOLUTION 1 DROP OPHTH ×3 (11:54→19:40)
--- NOTE | 2025-02-07 14:48 | PN.CDI ---
CDI
- -
CDI:
Physician Documentation Request
Admit Date: 02/06/25 12:57
Dear Doctor David,
Please review the following and provide your response in the progress notes.
Clinical Indicators:
Nurses' Assessment, 02/06
Selected Entries
02/06/25
16:19
Pressure injury stage [Present on admission Bilateral Buttock] Stage 1
Selected Entries
02/06/25
16:19
Pressure injury stage [Present on admission Coccyx] Stage 1
Physician documentation of the type and location of wounds is required for compliant documentation. Based on the above clinical findings and your assessment, please provide the following in your progress note:
Yes, Stage 1 pressure injury bilateral buttocks and coccyx, POA
No, Stage 1 pressure injury bilateral buttocks and coccyx
Other (please specify)
Location of the ulcer/wound, including laterality.
Type (etiology) of ulcer/wound:
- Pressure (decubitus) ulcer
- Other
- Unable to determine
For a pressure ulcer, please also include the stage* of the ulcer:
- Stage 1 - Skin intact, non-blanchable redness
- Stage 2 - Partial thickness loss of dermis, includes intact or open blister
- Stage 3 - Full thickness tissue not including bone, tendon or muscle
- Stage 4 - Full thickness tissue loss, including exposed bone, tendon or muscle
- Unstageable - Full thickness loss in which the base of the ulcer is covered by slough (yellow, khalil, landa, green or brown) and/or eschar (khalil, brown or black) in the wound bed.
Use of terms such as suspected, likely, concern for, or probable (associated with a specific diagnosis that is being evaluated, monitored, or treated as if it exists) are acceptable and can be coded in the inpatient setting, when documented at the
time of discharge.
Thank you,
Julia Martini RN BSN CCDS
CDI Specialist
please contact via tiger text
Please use your independent medical judgment in providing your response.
*Source: National Pressure Ulcer Advisory Panel (NPUAP)
--- NOTE | 2025-02-07 14:53 | PN.CDI ---
CDI
- -
CDI:
Physician Documentation Request
Admit Date: 02/06/25 12:57
Dear Doctor David,
Please review the following and provide your response in the progress notes.
Clinical Indicators:
PN, 02/07
#BL Conjunctivitis, likely Bacterial
#...- new on admission, given patient's dementia and recent loose bowel movements,
#...most likely bacterial in nature
#- Started Polymyxin B- Trimethoprim eye drops qid x7d
Please clarify the acuity of the Bilateral Bacterial Conjunctivitis:
Acute
Acute on Chronic
Other (please specify)
Use of terms such as suspected, likely, concern for, or probable (associated with a specific diagnosis that is being evaluated, monitored, or treated as if it exists) are acceptable and can be coded in the inpatient setting, when documented at the
time of discharge.
Thank you,
Julia Martini RN BSN CCDS
CDI Specialist
Please contact via tiger text
Please use your independent medical judgment in providing your response.
--- NOTE | 2025-02-07 15:10 | W.PN.GI.CBS2 ---
Today's Communication / Plan
-
Daily bowel regimen
Anusol suppository as needed
Assessment / Plan
-
Dakotah is an 89yo M with h/o dementia in SNF, pacer and multiple myeloma who presents with hematochezia after episode of constipation at SNF. Denies abd pain, nausea/vomiting or LH. Vitals HR is paced, BP 140/90s. NTTP, NABs. Labs reviewed Hbg
stable. CTA neg for extravasation, diverticulosis and suggestive of proctitis. mild prostate enlargement
Impression
- Hematochezia
Painless could be diverticular vs hemorrhoidal
- Dementia
- Pacer
- Multiple myeloma
- HTN
- SSS pacer
- BP
Recommendations
- Hb stable. Proud burgundy stools possible residual . tolerating diet
- consider daily bowel regimen (Metamucil/MiraLAX/Colace ) and anusol supp empirically for hemorrhoids
- His last Cscope 2018 and family would like to hold off on future colonoscopy
- Will sign off. Please call us back if any questions
Total Time Spent with Patient (in minutes): 35
Subjective
Subjective
Date of Service: February 07, 2025
No right red blood per rectum.
Objective
Data Reviewed
Laboratory Data:
Laboratory Results
02/07/25 07:30
02/07/25 03:40
Laboratory Results
Total Bilirubin Cancelled 02/06/25 09:30
AST Cancelled 02/06/25 09:30
ALT Cancelled 02/06/25 09:30
Alkaline Phosphatase Cancelled 02/06/25 09:30
Vital Signs and I&O:
Vital Signs
Temp Pulse Resp BP Pulse Ox
97.7 F 65 21 119/61 97
02/07/25 11:30 02/07/25 12:00 02/07/25 12:00 02/07/25 12:00 02/07/25 12:33
I&O
02/06/25 02/07/25 02/08/25
06:59 06:59 06:59
Intake Total 600 / 600
Output Total 925 / 925 300 / 300
Balance -325 / -325 -300 / -300
Physical Exam
Physical Exam
GI: Soft, Non Distended and Non Tender
--- NOTE | 2025-02-07 16:31 | CM ---
Patient from [facility] with Hx dementia with Dx GI bleed. Room air. Diet advanced today to regular. Per nurse; confused.
Spoke with Carmella Arzate [facility];
the patient resides there in their memory unit D1, in LTC on an MA bed hold.
He was alert but pleasantly confused.
The patient rquires mod-max assist of 1 for ADLs.
He ambulated with RW with supervision.
He was not receiving PT/OT at [facility].
The for report [phone], fax [phone].
Message from Resident David; patient is ready for d/c today.
Spoke with Deborah Arzate: they cannot accept the patient back today as they already have several other admissions, however can take him tomorrow.
Spoke with patient's Soraya; she feels that the patient is not ready for d/c today, however she agrees with him returning to SNF tomorrow.
Plan return to [facility] tomorrow by ambulance.
[2025-02-07] MEDS: FLOMAX 0.4 MG PO (17:24)
[2025-02-07] MEDS: SENOKOT-S 1 TABLET PO (19:40)
[2025-02-08 04:38] LABS: ALT (SGPT) 28 U/L (0-50); AST (SGOT) 36 U/L (17-59); Albumin 3.5 g/dl (3.5-5.0); Alkaline Phosphatase 72 U/L (38-126); Blood Urea Nitrogen 19 mg/dl (9-20); Calcium 8.3 mg/dl (8.4-10.2); Carbon Dioxide 23 mmol/L (22-30); Chloride 110 mmol/L (98-107); Estimated Creatinine Clearance 61 ml/min; Glucose 95 mg/dl (70-99); Potassium 3.9 mmol/L (3.5-5.1); Sodium 140 mmol/L (135-145); Total Bilirubin 0.7 mg/dl (0.2-1.3); Total Protein 5.9 g/dl (6.3-8.2); eGFR > 60.00
[2025-02-08 04:50] LABS: % Basophils 0.5 % (0-2); % Eosinophils 2.3 % (0-6); % Immature Granulocytes 0.9 % (0-0.5); % Lymphocytes 15.9 % (20.5-51.1); % Monocytes 15.6 % (1.7-9.3); % Neutrophils 64.8 % (42.2-75.2); Absolute Eosinophils 0.2 10^3/uL (0-0.7); Absolute Immature Granulocytes 0.1 10^3/uL (0-0.05); Absolute Neutrophils 4.2 10^3/uL (1.4-6.5); Hematocrit 40.7 % (39.0-52.0); Hemoglobin 13.9 g/dL (13.0-18.0); Mean Corp Hgb Conc. 34.2 g/dL (33.0-37.0); Mean Corpuscular Hgb 30.1 pg (27.0-31.0); Mean Corpuscular Volume 88.1 fL (80.0-94.0); Mean Platelet Volume 10.2 fL (7.4-10.4); Nucleated Red Blood Cells % 0 % (-); Platelet Count 138 10^3/uL (130-400); Red Blood Cell Count 4.62 10^6/uL (4.70-6.10); Red Cell Dist. Width 13.2 % (11.5-14.5); White Blood Cell Count 6.4 10^3/uL (4.8-10.8)
--- NOTE | 2025-02-08 04:56 | PTCARENOTE ---
Patient confused and restless overnight. Continuously attempting to get OOB. Bed alarm on. Continues with dark black stools.
--- NOTE | 2025-02-08 07:12 | W.PN.HOSP.TC ---
Addendum entered and electronically signed by Lee Granda MD 02/08/25 21:20:
Attending Addendum-
I saw and evaluated the patient. I reviewed the resident�s note and agree with findings and plan as documented in the resident�s note. Sub: Patient is a poor historian due to dementia but very pleasant. Seen with present. Per nursing now dark
collored stool. No further BRBPR. Patient with no complaints. Full 12 point ROS reviewed and negative except as documented Exam: Vitals reviewed in chart GEN-NAD heart RRR no M/R/G lungs clear abd soft NT ND pos BS LE no edema Neuro AAO x 1
Plan:
# Acute GI Bleed, likely lower
- resolved
- diverticular vs hemorrhoids
- transfer to [facility] 02/07
- GI- no indication for invasive procedures due to age and acute bleeding has subsided
- CT Angio 02/06-
1. No extravasation of contrast into the bowel to suggest active bleeding at the time of imaging.
2. Hyper enhancement of the rectal mucosa on arterial phase images, suggestive of proctitis. No intraluminal contrast is seen on delayed phase images to suggest active rectal bleeding.
3. Moderate colonic diverticulosis without evidence of diverticulitis.
-advance diet
-Trend serial Hgb- stable
# Stage 1 b/l sacral and coccyx ulcer
- POA
- wound care
# Dementia
-Monitor for mood/behavior changes during hospitalization
# BPH
-Continue Flomax
#Hx Sick Sinus Syndrome s/p Permanent Pacemaker
#Hx Multiple Myeloma s/p Chemotherapy - In Remission
DVT proph: SCDs
Dispo DC back to [facility] for today but delayed due to PT eval, DC to [facility] in am d/w CM
Code Status: DNR d/w with at bedside
Time spent coordinating care, review of plan of care with resident, personally reviewed records in EMR, med rec, consults, notes, labs, radiology, d/w nursing CM and POA � 51 mins
Original Note:
Today's Communication/Plan
-
PT consult
c/w abx eye drops
plan for d/c back to [facility]
Assessment / Plan
Assessment / Plan
89 Year old male presenting with an episode of painless hematochezia after straining
Soraya : [phone]
ACUTE MANAGING
CT Abd/pelvis Angio W/wo Iv:
1. No extravasation of contrast into the bowel to suggest active bleeding at the time of imaging.
2. Hyper enhancement of the rectal mucosa on arterial phase images, suggestive of proctitis. No intraluminal contrast is seen on delayed phase images to suggest active rectal bleeding.
3. Moderate colonic diverticulosis without evidence of diverticulitis.
4. Mild prostatic enlargement.
#Painless Hematochezia, secondary to diverticular bleed vs. hemorrhoidal bleed
- previous colonoscopy 2019, polyp removal, no h/o colon cancer
- h/o diverticulosis w/ CT confirmation -- no evidence for diverticulitis
- CTA shows no signs of active bleed. There is radiographic evidence of proctitis
- hgb on admission 14.2, has not required transfusions, hgb today stable 13.9.
- patient hemodynamically stable
- tolerating Regular diet
- holding aspirin
#Acute BL Conjunctivitis, likely Bacterial
- new on admission, given patient's dementia and recent loose bowel movements, most likely bacterial in nature
- Started Polymyxin B- Trimethoprim eye drops qid x7d
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
Pending PT consult for return to [facility]
CHRONIC STABLE
#Chronic Constipation - c/w Dulcolax, MoM prn
#H/o Multiple Myeloma, in remission
#Dementia - holding Theragen
# Sick Sinus Syndrome, s/p pacemaker -
#BPH - c/w flomax
Diet: regular
DVT PPx: None
Code Status: Full Code
Anticipated Discharge: Within 24 hours
Subjective/Interval History
-
Date of Service: February 08, 2025
Feeling well this AM, no acute complaints. No overnight events. Stools have become black/brown, without [place] blood or clots.
Objective Data
-
Labs:
Laboratory Results
02/08/25
03:53
WBC 6.4
Hgb 13.9
Hct 40.7
Plt Count 138
Sodium 140
Potassium 3.9
Chloride 110 H
Carbon Dioxide 23
BUN 19
Creatinine 0.8
Glucose 95
Calcium 8.3 L
Total Bilirubin 0.7
AST 36
ALT 28
Alkaline Phosphatase 72
Vital Signs:
Vital Signs
Temp Pulse Resp BP Pulse Ox
97.5 F 66 20 152/66 94
02/08/25 03:46 02/07/25 23:29 02/07/25 23:29 02/07/25 23:29 02/07/25 23:29
I&O
02/07/25 02/08/25 02/09/25
06:59 06:59 06:59
Intake Total 600 / 600
Output Total 925 / 925 1025 / 1025
Balance -325 / -325 -1025 / -1025
Review of Systems
-
Unable to obtain full review of systems at this time due to: Dementia
History Source: Patient
Constitutional: Reports No Symptoms
Respiratory: Reports No Symptoms
Cardiac: Reports No Symptoms
Abdomen/GI: Reports No Symptoms
Genitourinary: Reports No Symptoms
Musculoskeletal: Reports No Symptoms
Physical Exam
-
General: Well Developed, Well Nourished, No Apparent Distress and Comfortable
HEENT: Normocephalic, Atraumatic, Moist Mucous Membranes, Anicteric, [place] Conjunctivae, Nose Appears Normal, Ears Appear Normal and Other (resolved conjunctivitis, has orbital erythema R>L)
Respiratory: Clear to Auscultation; Negative Wheezes, Rales or Rhonchi
Cardiac: Regular Rhythm and S1/S2; Negative Murmur or Rub
GI: Soft, Nontender, Nondistended and Normal Bowel Sounds
Musculoskeletal: No Clubbing, No Cyanosis and No Edema
Skin: Warm, Dry and IV Access / Catheter Site
Neuro: Awake and Alert
Psych: Calm
[2025-02-08 07:33] VITALS: BP 158/83
[2025-02-08 07:37] VITALS: BP 158/83
[2025-02-08] MEDS: SENOKOT-S 1 TABLET PO (08:39)
[2025-02-08] MEDS: POLYTRIM OPHTHALMIC SOLUTION 1 DROP OPHTH ×4 (08:39→19:45)
[2025-02-08] MEDS: PROTONIX 40 MG PO (08:39)
[2025-02-08] MEDS: MIRALAX 17 GRAMS PO (08:39)
[2025-02-08] MEDS: ANUSOL HC 25 MG RECTAL (12:11)
--- NOTE | 2025-02-08 15:09 | PTCARENOTE ---
Addendum entered by Azra Pruitt RN 02/08/25 15:11:
Redness noted to both eyes, R>L, with small amount yellow drainage; eye drops given as ordered.
Original Note:
Assumed care of patient at beginning of this shift. Patient Ox1, pleasantly confused; restless at times when needing to use urinal. at bedside for most of the day; patient less restless. Anusol suppository ordered and given. See worklist for
full assessment and vital signs.
[2025-02-08 15:37] VITALS: BP 143/71
--- NOTE | 2025-02-08 16:15 | CM ---
Patient from [facility] with Hx dementia with Dx GI bleed. Room air. PT Eval pending. Per nurse; confused, forgetful.
Met with patient and ; patient not participating in conversation. agrees to discharge tomorrow back to [facility]. IMM completed.
Spoke with Huey, [facility]; she is aware of d/c tomorrow with noon transport requested and she is aware PT Eval is pending. The for report [phone], fax [phone].
Plan follow up PT Eval.
Plan return to [facility] tomorrow at noon by ambulance.
[2025-02-08 16:27] VITALS: BP 143/71; O2SAT 94
[2025-02-08] MEDS: FLOMAX 0.4 MG PO (17:26)
[2025-02-08] MEDS: SENOKOT-S PO (19:40)
[2025-02-08 23:00] VITALS: BP 148/98
--- NOTE | 2025-02-09 00:51 | PTCARENOTE ---
Patient transferred to [address] [place] [address]
--- NOTE | 2025-02-09 01:39 | PTCARENOTE ---
Pt transfered from IMU at 2330. VSS. Bed locked and in lowest position. bed alarm placed.
[2025-02-09 03:07] VITALS: BP 143/73
[2025-02-09 07:25] VITALS: BP 154/65
[2025-02-09 07:34] LABS: % Basophils 0.5 % (0-2); % Eosinophils 2.5 % (0-6); % Immature Granulocytes 0.7 % (0-0.5); % Lymphocytes 18.5 % (20.5-51.1); % Monocytes 18.7 % (1.7-9.3); % Neutrophils 59.1 % (42.2-75.2); Absolute Eosinophils 0.2 10^3/uL (0-0.7); Absolute Lymphocytes 1.1 10^3/uL (1.2-3.4); Absolute Monocytes 1.1 10^3/uL (0.1-0.6); Absolute Neutrophils 3.6 10^3/uL (1.4-6.5); Hematocrit 40.1 % (39.0-52.0); Hemoglobin 13.7 g/dL (13.0-18.0); Mean Corp Hgb Conc. 34.2 g/dL (33.0-37.0); Mean Corpuscular Hgb 29.8 pg (27.0-31.0); Mean Corpuscular Volume 87.4 fL (80.0-94.0); Mean Platelet Volume 10.3 fL (7.4-10.4); Nucleated Red Blood Cells % 0 % (-); Platelet Count 135 10^3/uL (130-400); Red Blood Cell Count 4.59 10^6/uL (4.70-6.10); Red Cell Dist. Width 13.4 % (11.5-14.5); White Blood Cell Count 6.1 10^3/uL (4.8-10.8)
[2025-02-09 07:48] LABS: ALT (SGPT) 26 U/L (0-50); AST (SGOT) 31 U/L (17-59); Albumin 3.2 g/dl (3.5-5.0); Alkaline Phosphatase 67 U/L (38-126); Blood Urea Nitrogen 17 mg/dl (9-20); Calcium 8.6 mg/dl (8.4-10.2); Carbon Dioxide 27 mmol/L (22-30); Chloride 107 mmol/L (98-107); Estimated Creatinine Clearance 61 ml/min; Glucose 98 mg/dl (70-99); Potassium 3.9 mmol/L (3.5-5.1); Sodium 139 mmol/L (135-145); Total Protein 5.6 g/dl (6.3-8.2); eGFR > 60.00
--- NOTE | 2025-02-09 08:47 | W.PN.HOSP.TC ---
Addendum entered and electronically signed by Lee Granda MD 02/09/25 23:06:
Attending Addendum-
I saw and evaluated the patient. I reviewed the resident�s note and agree with findings and plan as documented in the resident�s note. Sub: Patient is a poor historian due to dementia but very pleasant. Per nursing now dark colored stool. No further
BRBPR. Patient with no complaints. Full 12 point ROS reviewed and negative except as documented Exam: Vitals reviewed in chart GEN-NAD heart RRR no M/R/G lungs clear abd soft NT ND pos BS LE no edema Neuro AAO x 1
Plan:
# Acute GI Bleed, likely lower
- resolved
- diverticular vs hemorrhoids
- GI- no indication for invasive procedures due to age and acute bleeding has subsided
- CT Angio 02/06-
1. No extravasation of contrast into the bowel to suggest active bleeding at the time of imaging.
2. Hyper enhancement of the rectal mucosa on arterial phase images, suggestive of proctitis. No intraluminal contrast is seen on delayed phase images to suggest active rectal bleeding.
3. Moderate colonic diverticulosis without evidence of diverticulitis.
-karen diet
-Trend serial Hgb- stable
# Stage 1 b/l sacral and coccyx ulcer
- POA
- wound care
# Dementia
-Monitor for mood/behavior changes during hospitalization
# BPH
-Continue Flomax
#Hx Sick Sinus Syndrome s/p Permanent Pacemaker
#Hx Multiple Myeloma s/p Chemotherapy - In Remission
DVT proph: SCDs
Dispo DC back to [facility]
Code Status: DNR d/w with at bedside
Time spent coordinating care, DC planning, review of DC plan of care with resident, transition of care, review of records, med rec/scripts sent electronically, consults, notes, d/w consultants, nursing, family, and CM�31 mins
Original Note:
Today's Communication/Plan
-
d/c to [facility]
c/t hold aspirin until seen by PCP, evaluated for necessity given h/o GI bleed
CBC x1 week
Assessment / Plan
Assessment / Plan
89 Year old male presenting with an episode of painless hematochezia after straining
Soraya : [phone]
ACUTE MANAGING
CT Abd/pelvis Angio W/wo Iv:
1. No extravasation of contrast into the bowel to suggest active bleeding at the time of imaging.
2. Hyper enhancement of the rectal mucosa on arterial phase images, suggestive of proctitis. No intraluminal contrast is seen on delayed phase images to suggest active rectal bleeding.
3. Moderate colonic diverticulosis without evidence of diverticulitis.
4. Mild prostatic enlargement.
#Painless Hematochezia, secondary to diverticular bleed vs. hemorrhoidal bleed
- previous colonoscopy 2019, polyp removal, no h/o colon cancer
- h/o diverticulosis w/ CT confirmation -- no evidence for diverticulitis
- CTA shows no signs of active bleed. There is radiographic evidence of proctitis
- hgb on admission 14.2, has not required transfusions, hgb today stable
- patient hemodynamically stable
- tolerating Regular diet
- holding aspirin
#Acute BL Conjunctivitis, likely Bacterial
- new on admission, given patient's dementia and recent loose bowel movements, most likely bacterial in nature
- Started Polymyxin B- Trimethoprim eye drops qid x7d
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
Pending PT consult for return to [facility]
CHRONIC STABLE
#Chronic Constipation - c/w Dulcolax, MoM prn
#H/o Multiple Myeloma, in remission
#Dementia - holding Theragen
# Sick Sinus Syndrome, s/p pacemaker -
#BPH - c/w flomax
Diet: regular
DVT PPx: None
Code Status: Full Code
Anticipated Discharge: Today
Subjective/Interval History
-
Date of Service: February 09, 2025
No acute complaints. No overnight events. x1 black stool overnight. No new BRBPR
Objective Data
-
Labs:
Laboratory Results
02/09/25
06:55
WBC 6.1
Hgb 13.7
Hct 40.1
Plt Count 135
Sodium 139
Potassium 3.9
Chloride 107
Carbon Dioxide 27
BUN 17
Creatinine 0.8
Glucose 98
Calcium 8.6
Total Bilirubin 1.0
AST 31
ALT 26
Alkaline Phosphatase 67
Vital Signs:
Vital Signs
Temp Pulse Resp BP Pulse Ox
98.0 F 66 14 154/65 94
02/09/25 07:25 02/09/25 07:25 02/09/25 07:25 02/09/25 07:25 02/09/25 07:25
I&O
02/08/25 02/09/25 02/10/25
06:59 06:59 06:59
Intake Total 720 / 720
Output Total 1025 / 1025 525 / 525
Balance -1025 / -1025 195 / 195
Review of Systems
-
History Source: Patient
Constitutional: Reports No Symptoms
EENT: Reports No Symptoms Reported
Respiratory: Reports No Symptoms
Cardiac: Reports No Symptoms
Abdomen/GI: Reports No Symptoms
Genitourinary: Reports No Symptoms
Musculoskeletal: Reports No Symptoms
Neuro: Reports No Symptoms
Physical Exam
-
General: Well Developed, Well Nourished, No Apparent Distress and Comfortable
HEENT: Normocephalic, Atraumatic, Moist Mucous Membranes, Anicteric, [place] Conjunctivae, Nose Appears Normal, Ears Appear Normal and Other (orbital erythema & scaling)
Respiratory: Clear to Auscultation; Negative Wheezes, Rales or Rhonchi
Cardiac: Regular Rhythm and S1/S2; Negative Murmur or Rub
Breast: N/A
GI: Soft, Nontender, Nondistended and Normal Bowel Sounds
Musculoskeletal: No Clubbing, No Cyanosis and No Edema
Skin: Warm, Dry and IV Access / Catheter Site
Neuro: Awake, Alert and Oriented
[2025-02-09] MEDS: ANUSOL HC 25 MG RECTAL (09:06)
[2025-02-09] MEDS: PROTONIX 40 MG PO (09:07)
[2025-02-09] MEDS: MIRALAX 17 GRAMS PO (09:07)
[2025-02-09] MEDS: SENOKOT-S 1 TABLET PO (09:07)
[2025-02-09] MEDS: POLYTRIM OPHTHALMIC SOLUTION 1 DROP OPHTH (09:08)
[2025-02-09 11:20] VITALS: BP 142/57
--- NOTE | 2025-02-09 12:25 | CM ---
Patient seen at bedside, son present. IMM completed and ambulance to transport patient at 12 noon. CM will continue to follow for discharge planning needs.
Plan; return to [facility]
for report [phone], fax [phone].
--- NOTE | 2025-02-09 16:51 | W.DCSUMMARY ---
Addendum entered and electronically signed by Lee Granda MD 02/09/25 23:06:
Read, reviewed, and agree. See same day progress note for additional details.
Yuri Granda MD
Original Note:
Documented by User: Hira Hernandez MD, Resident 02/09/25 17:05
Discharge Summary
Discharge Data
Date of Admission: 02/06/25
Date of Discharge: 02/09/25
Total time spent discharging patient (in min): >30m
-
Pending Results: No
Hospital Course
Discharging Physician : Dr. Hira Hernandez, Dr. Lee Granda
Disposition : SNF
Primary care physician : Dr. Osmany Boyce
Principal Discharge diagnosis : Hematochezia, Acute Bilateral Bacterial Conjunctivitis
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
Hospital Course :
#Painless Hematochezia, secondary to diverticular bleed vs. hemorrhoidal bleed
#Hemorrhoids
#Diverticulosis
- previous colonoscopy 2019, polyp removal, no h/o colon cancer.
- h/o diverticulosis. There was no evidence for acute diverticulitis.
- CTA shows no signs of active bleed. There was radiographic evidence of proctitis.
- hgb on admission 14.2, did not require any transfusions, hgb stable throughout admission
- he remained hemodynamically stable
Aspirin was held due to bleeding. Recommend to continue holding until seen by PCP outpatient and the necessity of aspirin is considered given this new clinical development. Recommend CBC as outpatient in x1week.
Added Anusol x3d for management of current proctitis as seen on CT and to continue prn thereafter h/o for hemorrhoids.
#Chronic Constipation - c/w Dulcolax, MoM prn. Added Miralax and Senokot QD to aid in soft BMs to reduce chance of hemorrhoidal bleeding.
#Acute BL Conjunctivitis, likely Bacterial
- new on admission. was started on Polymyxin B-Trimethoprim eye drops qid x7d
#Stage 1 pressure injury bilateral buttocks and coccyx
- present on admission. Managed with dressings and ointment. Stable throughout.
#Dementia - held Theragen throughout. OK to resume on D/c.
#Sick Sinus Syndrome, s/p pacemaker - monitored on tele. No acute arrhythmias or cardiac events during admission.
#BPH - continued on Flomax. No acute urinary issues during admission.
Important imaging findings :
CT Abd/pelvis Angio W/wo Iv:
1. No extravasation of contrast into the bowel to suggest active bleeding at the time of imaging.
2. Hyper enhancement of the rectal mucosa on arterial phase images, suggestive of proctitis. No intraluminal contrast is seen on delayed phase images to suggest active rectal bleeding.
3. Moderate colonic diverticulosis without evidence of diverticulitis.
4. Mild prostatic enlargement.
Procedure findings :
None.
Discharge Plan
-
Patient Disposition: Shelter/SNF
Discharge Diagnosis/Procedures: Acute GI Bleed
Condition: Good
Diet: As tolerated
Activity: With assistance and As tolerated
Driving Restrictions: As prior to admission
Blood Work: CBC in 1 week
Referrals:
Osmany Boyce DO [Family Provider] -
Prescriptions:
New
polyethylene glycol 3350 17 gram Powder In Packet
17 g PO DAILY 90 Days Qty: 90 1RF
hydrocortisone acetate 25 mg Suppository
25 mg MT HSPRN PRN (Reason: hemorrhoid pain) 30 Days Qty: 30 2RF
polymyxin B sulf-trimethoprim 10,000 unit- 1 mg/mL Drops
1 drp ophthalmic (eye) QID 5 Days Qty: 10 0RF
sennosides-docusate sodium 8.6-50 mg Tablet
1 tab PO BID 90 Days Qty: 180 0RF
Continued
acetaminophen [Tylenol] 325 mg Tablet
650 mg PO Q4HPRN PRN (Reason: MILD PAIN)
therapeutic multivitamin Tablet
1 tab PO DAILY
magnesium hydroxide [Milk of Magnesia] 400 mg/5 mL Suspension
2,400 mg PO HSPRN PRN (Reason: CONSTIPATION)
tamsulosin [Flomax] 0.4 mg Capsule
0.4 mg PO QPM
bisacodyl [Dulcolax (bisacodyl)] 10 mg Suppository
10 mg MT [id number] PRN (Reason: IF NO BM AFTR MOM)
cholecalciferol (vitamin D3) [Vitamin D3] 25 mcg (1,000 unit) Tablet
25 mcg PO DAILY
Held
aspirin 81 mg Tablet,Delayed Release (Dr/Ec)
81 mg PO DAILY
Hold Instructions: Hold until seen by PCP and confirmed that there is no longer a bleed. Consider evaluation for need of Aspirin given new h/o GI bleed and risk of fall
Discharge Orders:
Discharge Patient (As Directed); Ordered 02/09/25
Ordered By: Hira Hernandez
Discharge Date and Time
Discharge Date/Time: 02/09/25 13:11
Print Language: SINHALA

Documented by User: Lee Granda MD 02/09/25 23:04
Discharge Summary
Discharge Data
Date of Admission: 02/06/25
Date of Discharge: 02/09/25
Discharge Plan
-
Patient Disposition: Shelter/SNF
Discharge Diagnosis/Procedures: Acute GI Bleed
Condition: Good
Diet: As tolerated
Activity: With assistance and As tolerated
Driving Restrictions: As prior to admission
Blood Work: CBC in 1 week
Referrals:
Osmany Boyce DO [Family Provider] -
Prescriptions:
New
polyethylene glycol 3350 17 gram Powder In Packet
17 g PO DAILY 90 Days Qty: 90 1RF
hydrocortisone acetate 25 mg Suppository
25 mg MT HSPRN PRN (Reason: hemorrhoid pain) 30 Days Qty: 30 2RF
polymyxin B sulf-trimethoprim 10,000 unit- 1 mg/mL Drops
1 drp ophthalmic (eye) QID 5 Days Qty: 10 0RF
sennosides-docusate sodium 8.6-50 mg Tablet
1 tab PO BID 90 Days Qty: 180 0RF
Continued
acetaminophen [Tylenol] 325 mg Tablet
650 mg PO Q4HPRN PRN (Reason: MILD PAIN)
therapeutic multivitamin Tablet
1 tab PO DAILY
magnesium hydroxide [Milk of Magnesia] 400 mg/5 mL Suspension
2,400 mg PO HSPRN PRN (Reason: CONSTIPATION)
tamsulosin [Flomax] 0.4 mg Capsule
0.4 mg PO QPM
bisacodyl [Dulcolax (bisacodyl)] 10 mg Suppository
10 mg MT [id number] PRN (Reason: IF NO BM AFTR MOM)
cholecalciferol (vitamin D3) [Vitamin D3] 25 mcg (1,000 unit) Tablet
25 mcg PO DAILY
Held
aspirin 81 mg Tablet,Delayed Release (Dr/Ec)
81 mg PO DAILY
Hold Instructions: Hold until seen by PCP and confirmed that there is no longer a bleed. Consider evaluation for need of Aspirin given new h/o GI bleed and risk of fall
Discharge Orders:
Discharge Patient (As Directed); Ordered 02/09/25
Ordered By: Hira Hernandez
Discharge Date and Time
Discharge Date/Time: 02/09/25 13:11
Print Language: SINHAL[place]
== END 2025-02-09 13:11 | DRG 378 ==
LOC: 2 SOUTH 12:57
PROVIDERS: Nurse Practitioner; Physician Assistant Medical; ADMITTING PHYSICIAN Internal Medicine; ATTENDING PHYSICIAN Family Medicine; CONSULT PHYSICIAN Internal Medicine Gastroenterology; EMERGENCY PHYSICIAN Student in an Organized Health Care Education/Training Program; FAMILY PHYSICIAN Student in an Organized Health Care Education/Training Program
DX: K57.31 Diverticulosis of large intestine without perforation or abscess with bleeding (principal); C90.01 Multiple myeloma in remission; K92.1 Melena; Z79.82 Long term (current) use of aspirin; Z66 Do not resuscitate; F03.90 Unspecified dementia, unspecified severity, without behavioral disturbance, psychotic disturbance, mood disturbance, and anxiety; I10 Essential (primary) hypertension; I49.5 Sick sinus syndrome; Z87.891 Personal history of nicotine dependence; L89.321 Pressure ulcer of left buttock, stage 1; L89.311 Pressure ulcer of right buttock, stage 1; L89.151 Pressure ulcer of sacral region, stage 1; H10.9 Unspecified conjunctivitis; K59.09 Other constipation; Z86.0100 Personal history of colon polyps, unspecified; Z92.21 Personal history of antineoplastic chemotherapy; Z95.0 Presence of cardiac pacemaker
CPT/HCPCS: 74174; 80048; 80053; 85014; 85018; 85025; 85027; 86850; 86900; 86901; 87070; 93005; 96374; 97163; 99285; Q9967

== ENCOUNTER → 2025-02-15 10:03 | Outpatient (REF) | payer MEDICARE, OTHER, SELFPAY ==
[2025-02-15 10:35] LABS: Hematocrit 38.4 % (39.0-52.0); Hemoglobin 12.8 g/dL (13.0-18.0); Mean Corp Hgb Conc. 33.3 g/dL (33.0-37.0); Mean Corpuscular Hgb 29.4 pg (27.0-31.0); Mean Corpuscular Volume 88.3 fL (80.0-94.0); Platelet Count 187 10^3/uL (130-400); Red Blood Cell Count 4.35 10^6/uL (4.70-6.10); Red Cell Dist. Width 13.3 % (11.5-14.5); White Blood Cell Count 5.3 10^3/uL (4.8-10.8)
[2025-02-15 11:44] LABS: Blood Urea Nitrogen 21 mg/dl (9-20); Calcium 8.8 mg/dl (8.4-10.2); Carbon Dioxide 27 mmol/L (22-30); Chloride 103 mmol/L (98-107); Glucose 92 mg/dl (70-99); Magnesium 2.2 mg/dl (1.6-2.3); Potassium 4.4 mmol/L (3.5-5.1); Sodium 139 mmol/L (135-145); eGFR > 60.00
== END ==
LOC: OLABN 10:03
PROVIDERS: ATTENDING PHYSICIAN Student in an Organized Health Care Education/Training Program
DX: K57.31 Diverticulosis of large intestine without perforation or abscess with bleeding (principal)
CPT/HCPCS: 36415; 80048; 83735; 85027

== ENCOUNTER → 2025-02-18 08:07 | Outpatient (REF) | payer MEDICARE, OTHER, SELFPAY ==
[2025-02-18 08:27] LABS: % Basophils 0.7 % (0-2); % Immature Granulocytes 1.1 % (0-0.5); % Lymphocytes 26.2 % (20.5-51.1); % Monocytes 13.3 % (1.7-9.3); % Neutrophils 55.7 % (42.2-75.2); Absolute Eosinophils 0.2 10^3/uL (0-0.7); Absolute Immature Granulocytes 0.1 10^3/uL (0-0.05); Absolute Lymphocytes 1.4 10^3/uL (1.2-3.4); Absolute Monocytes 0.7 10^3/uL (0.1-0.6); Hematocrit 40.6 % (39.0-52.0); Hemoglobin 13.1 g/dL (13.0-18.0); Mean Corp Hgb Conc. 32.3 g/dL (33.0-37.0); Mean Corpuscular Hgb 28.9 pg (27.0-31.0); Mean Corpuscular Volume 89.6 fL (80.0-94.0); Mean Platelet Volume 9.6 fL (7.4-10.4); Nucleated Red Blood Cells % 0 % (-); Platelet Count 251 10^3/uL (130-400); Red Blood Cell Count 4.53 10^6/uL (4.70-6.10); Red Cell Dist. Width 13.5 % (11.5-14.5); White Blood Cell Count 5.3 10^3/uL (4.8-10.8)
[2025-02-18 08:34] LABS: Blood Urea Nitrogen 21 mg/dl (9-20); Calcium 8.7 mg/dl (8.4-10.2); Carbon Dioxide 25 mmol/L (22-30); Chloride 107 mmol/L (98-107); Glucose 95 mg/dl (70-99); Potassium 4.2 mmol/L (3.5-5.1); Sodium 142 mmol/L (135-145); eGFR > 60.00
[2025-02-18 08:54] LABS: NT-proBNP 202 pg/ml
== END ==
LOC: OLABN 08:07
PROVIDERS: ATTENDING PHYSICIAN Student in an Organized Health Care Education/Training Program
DX: R60.0 Localized edema (principal); K57.31 Diverticulosis of large intestine without perforation or abscess with bleeding
CPT/HCPCS: 36415; 80048; 83880; 85025